=== PATIENT | female | born 1990 | race Two or more races ===

== ENCOUNTER 2019-07-09 12:39 | Observation (INO) | payer MEDICAID ==
[~2019-07-09] VITALS: Ht 165.1 cm; Wt 96.6 kg
[2019-07-09] MEDS ORDERED: PNV1TABL76 PO (13:01)
[2019-07-09] MEDS: DEXT 5%/LACTATED RINGERS 1,000 ML IV SCH ×2 (13:54→16:04)
[2019-07-09 14:16] LABS: CLARITY URINE CLEAR (CLEAR); COLOR URINE YELLOW (YELLOW); KETONES URINE NEGATIVE (NEGATIVE); LEUKOCYTE ESTERASE URINE 1+ (NEGATIVE); NITRITE URINE NEGATIVE (NEGATIVE); OCCULT BLOOD URINE NEGATIVE (NEGATIVE); PROTEIN URINE NEGATIVE (NEGATIVE); SPECIFIC GRAVITY URINE 1.003 (1.005-1.030); UROBILINOGEN URINE 0.2 E.U./dL (0.2-1.0)
[2019-07-09 14:19] LABS: BASOPHILS % 0.5 % (0.0-2.0); EOSINOPHILS % 0.7 % (0.0-5.0); HEMATOCRIT. 37.1 % (36.0-48.0); HEMOGLOBIN. 12.9 g/dL (12.0-16.0); LYMPHOCYTES % 19.4 % (20.0-50.0); MEAN CORPUSCULAR HEMOGLOBIN 32.9 pg (28.0-32.0); MEAN CORPUSCULAR VOLUME 94.3 fL (81.0-99.0); MEAN PLATELET VOLUME 9.3 fl (7.4-10.4); MONOCYTES % 9.2 % (2.0-8.0); NEUTROPHILS % 70.2 % (40.0-76.0); PLATELET 163 x1000/uL (130-400); RED BLOOD CELL COUNT 3.93 mill/uL (4.2-5.4); RED CELL DISTRIBUTION WIDTH 13.4 % (11.6-14.6)
[2019-07-09 14:23] LABS: CHLORIDE 109 mEq/L (98-107)
[2019-07-09] MEDS ORDERED: CEFAZOLIN 2,000 MG in DEXT 5% WATER 100 ML IV SCH (16:30)
== END 2019-07-09 16:30 | disposition home or self-care (01) ==
LOC: 8 EST LDRP 12:39
PROVIDERS: ADMIT Obstetrics & Gynecology; ATTEND Obstetrics & Gynecology
DX: O21.2 Late vomiting of pregnancy (principal); O26.893 Other specified pregnancy related conditions, third trimester; R10.30 Lower abdominal pain, unspecified; R42 Dizziness and giddiness; Z3A.34 34 weeks gestation of pregnancy
CPT/HCPCS: 36415; 76805; 76817; 76818; 80053; 81003; 85025; 96361; 96365; 99281; G0378; J0690; J7060; 96360

== ENCOUNTER 2019-08-19 00:03 | Observation (INO) | payer MEDICAID ==
[~2019-08-19 00:03] MED LIST: PNV1TABL76 PO
[2019-08-19] MEDS ORDERED: PNV1TABL29 PO (01:23)
[2019-08-19] MEDS ORDERED: ALBU90AE INH (01:53)
[2019-08-19] MEDS ORDERED: DEXT 5%/LACTATED RINGERS 1,000 ML IV NR (03:00)
== END 2019-08-19 03:00 | disposition home or self-care (01) ==
LOC: 8 EST LDRP 00:03
PROVIDERS: ADMIT Obstetrics & Gynecology; ATTEND Obstetrics & Gynecology
DX: O62.9 Abnormality of forces of labor, unspecified (principal); Z3A.38 38 weeks gestation of pregnancy
CPT/HCPCS: 99281; G0378